=== PATIENT | female | born 1965 ===

== ENCOUNTER 2020-03-25 06:01 | Outpatient (REF) | payer SELFPAY ==
[2020-03-27 07:50] LABS: SARS-CoV-2 RNA Undetected (Undetected); SARS-CoV-2 Specimen Source Nasal
== END 2020-03-25 06:21 ==
LOC: NCHCN 06:01
PROVIDERS: PCP Nurse Practitioner Family; Visit Provider Nurse Practitioner Family
DX: Z20.828 Contact with and (suspected) exposure to other viral communicable diseases (principal)
CPT/HCPCS: U0003